=== PATIENT | female | born 1975 | race Caucasian/White ===

== ENCOUNTER 2017-03-18 08:34 | Emergency (ER) | payer MEDICARE, MEDICAID ==
[2017-03-18] MEDS ORDERED: Fentanyl 100 MCG/2 ML VIAL ONE (09:52)
[2017-03-18] MEDS ORDERED: Midazolam HCl 2 mg/2 ml Vial ONE (09:52)
[2017-03-18] MEDS ORDERED: Lorazepam 2 MG/ML VIAL ONE (10:14)
[2017-03-18 10:24] LABS: #Basophils 0.1 thou/uL (0.0-0.2); #Eosinphils 0.1 thou/uL (0.0-0.7); #Lymphocytes 0.6 thou/uL (1.20-3.40); #Monocytes 0.3 thou/uL (0.11-0.59); #Neutrophils 3.9 thou/uL (1.40-6.50); %Basophils 1.1 % (0.0-1.0); %Eosinophils 2.8 % (0.0-10.0); %Lymphocytes 12.6 % (21.0-51.0); %Monocytes 6.5 % (0.0-10.0); Hemoglobin 13.1 g/dL (12.0-16.0); Mean Corpuscular HGB CONC 33.2 g/dL (32.0-36.0); Mean Corpuscular Hemoglobin 32.8 pg (27.0-31.0); Mean Corpuscular Volume 98.6 fl (81.0-99.0); Mean Platelet Volume 6.6 fL (7.4-10.4); Platelet Count 287 thou/uL (130-400); RBC Distribution Width 10.8 % (11.5-14.5); Red Blood Cell (RBC) Count 3.99 mill/uL (4.20-5.40)
[2017-03-18 10:33] LABS: Prothrombin Time 12.9 SEC (12.0-14.7)
[2017-03-18 10:49] LABS: ALT (SGPT) 12 U/L (8-55); AST (SGOT) 21 U/L (5-34); Albumin 4.2 g/dL (3.5-5.0); Alkaline Phosphatase 104 U/L (40-150); Anion Gap 14 mmol/L (10-20); BUN (Urea Nitrogen) 9 mg/dL (7.0-18.7); Bilirubin, Total 0.3 mg/dL (0.2-1.2); Calc. Creatinine Clearance 0 mL/min (70-130); Calcium 9.1 mg/dL (7.8-10.44); Carbon Dioxide 23 mmol/L (22-29); Chloride 106 mmol/L (98-107); Estimated GFR-MDRD Greater than 90; Globulin 3.5 g/dL (2.4-3.5); Glucose 86 mg/dL (70-105); Potassium 4.7 mmol/L (3.5-5.1); Protein, Total 7.7 g/dL (6.0-8.3); Sodium 138 mmol/L (136-145)
--- NOTE | 2017-03-18 10:50 | CT ---
CT BRAIN WITHOUT CONTRAST: HISTORY: Fall while getting dressed this morning with head trauma. History of partial seizures and cerebral p alsy. COMPARISON: None. TECHNIQUE: Multiple contiguous axial images were obtained in a CT of the brain without contrast. FINDINGS: The brain is normal in morphology and attenuation without focal lesions or confluent areas of infarct ion. There is no evidence of hydrocephalus, intracranial hemorrhage, or extraaxial fluid collection. The calvarium and overlying soft tissues are unremarkable. The visualized paranasal sinuses and mast oid air cells are well aerated. IMPRESSION: No evidence of acute intracranial abnormality. POS: [facility]
--- NOTE | 2017-03-18 10:52 | CT ---
CT CERVICAL SPINE WITHOUT CONTRAST: HISTORY: Fall with head trauma and neck pain. COMPARISON: None. TECHNIQUE: Multiple contiguous axial images were obtained in a CT of the cervical spine without contrast. Sagit reyna and coronal reformats were performed. FINDINGS: There are mild to moderate degenerative changes of the cervical spine. The vertebral bodies demonstr ate normal height and alignment without fracture or subluxation. No prevertebral soft tissue swellin g is seen. The posterior facets are well aligned. Normal alignment of the skull base with the cervical spine is seen. IMPRESSION: Degenerative changes of the cervical spine without acute osseous abnormality. POS: [facility]
--- NOTE | 2017-03-18 10:55 | CT ---
CT FACE WITHOUT CONTRAST: HISTORY: Fall while getting dressed this morning. The patient hit her chin on a window sill with pain and swe lling. COMPARISON: None. TECHNIQUE: Multiple contiguous axial images were obtained in a CT of the face without contrast. Sagittal and co jim reformats were performed. 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 No fractu res of the mandible are seen, and this is likely chronic. There is a soft tissue laceration of the r ight anterior chin. No facial fractures are seen. The paranasal sinuses are well aerated. The mast oid air cells are well aerated. There is a small amount of material in both external auditory canals , which likely represent cerumen impaction. The globes and retrobulbar soft tissues are unremarkable. IMPRESSION: 1. No evidence of acute facial fracture. 2. 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 POS: [facility]
[2017-03-18] MEDS ORDERED: Diprivan 20 ML ONE (13:20)
[2017-03-18] MEDS ORDERED: Clindamycin/D5W 600 mg/50 ml Premix Bag ONE (13:20)
[2017-03-18] MEDS ORDERED: Lidocaine 1% w/Epinephrine 1:100K 20 ML VIAL ONE (13:42)
[2017-03-18] MEDS ORDERED: Ondansetron HCl/PF 4 MG/2 ML Vial ONE (14:34)
== END 2017-03-18 15:48 | disposition home or self-care (01) ==
LOC: ERS 08:34
DX: S01.81XA Laceration without foreign body of other part of head, initial encounter (principal); G40.209 Localization-related (focal) (partial) symptomatic epilepsy and epileptic syndromes with complex partial seizures, not intractable, without status epilepticus; W18.30XA Fall on same level, unspecified, initial encounter
CPT/HCPCS: 12052; 70450; 70486; 72125; 80053; 85025; 85610; 94760; 99152; 99153; J2001; J2060; J2250; J2405; J2704; J3010; J3490

== ENCOUNTER 2017-03-25 08:19 | Emergency (ER) | payer MEDICARE, MEDICAID ==
[2017-03-25] MEDS ORDERED: Midazolam HCl 5 mg/ml Vial ONE (08:42)
[2017-03-25] MEDS ORDERED: cefTRIAXone\\ROCEPHIN 500 MG VIAL ONE (09:06)
[2017-03-25] MEDS ORDERED: Lidocaine 1% PF 5 ML VIAL ONE (09:06)
== END 2017-03-25 10:10 | disposition home or self-care (01) ==
LOC: ERS 08:19
DX: T81.4XXA Infection following a procedure, initial encounter (principal); L03.211 Cellulitis of face
CPT/HCPCS: J0696; J2001; J2250

== ENCOUNTER 2019-02-13 15:49 | Emergency (ER) | payer MEDICARE, MEDICAID ==
--- NOTE | 2019-02-13 16:34 | CT ---
CT BRAIN WITHOUT CONTRAST: HISTORY: Altered mental status Comparison: 03/18/2017 FINDINGS: No evidence of acute infarct, hemorrhage, midline shift or abnormal extra-axial fluid collections is seen. The ventricular size is appropriate and the basilar cisterns are patent. The bony calvarium is intact. The visualized paranasal sinuses and mastoid air cells are well aerated. IMPRESSION: No CT evidence of acute intracranial process.
[2019-02-13 17:08] LABS: #Eosinphils 0.2 thou/uL (0.0-0.7); #Lymphocytes 0.8 thou/uL (1.20-3.40); #Monocytes 0.6 thou/uL (0.11-0.59); #Neutrophils 3.6 thou/uL (1.40-6.50); %Basophils 0.9 % (0.0-1.0); %Eosinophils 4.5 % (0.0-10.0); %Lymphocytes 15.9 % (21.0-51.0); %Monocytes 10.9 % (0.0-10.0); %Neutrophils 67.8 % (42.0-75.0); Hemoglobin 12.3 g/dL (12.0-16.0); Mean Corpuscular HGB CONC 33.5 g/dL (32.0-36.0); Mean Corpuscular Hemoglobin 32.6 pg (27.0-31.0); Mean Corpuscular Volume 97.3 fL (78.0-98.0); Mean Platelet Volume 6.7 fL (7.4-10.4); Platelet Count 270 thou/uL (130-400); Red Blood Cell (RBC) Count 3.76 mill/uL (4.20-5.40); White Blood Cell (WBC) Count 5.3 thou/uL (4.8-10.8)
[2019-02-13] MEDS ORDERED: carBAMazepine 200 MG TAB PO SCH (17:30)
[2019-02-13 17:32] LABS: ALT (SGPT) 9 U/L (8-55); AST (SGOT) 11 U/L (5-34); Albumin 4.1 g/dL (3.5-5.0); Alkaline Phosphatase 84 U/L (40-110); Anion Gap 7 mmol/L (10-20); BUN (Urea Nitrogen) 15 mg/dL (7.0-18.7); Bilirubin, Total Less than 0.2 mg/dL (0.2-1.2); Calc. Creatinine Clearance 0 mL/min (70-130); Calcium 9.2 mg/dL (7.8-10.44); Carbon Dioxide 33 mmol/L (22-29); Chloride 102 mmol/L (98-107); Estimated GFR-MDRD Greater than 90; Globulin 2.9 g/dL (2.4-3.5); Glucose 94 mg/dL (70-105); Potassium 4.3 mmol/L (3.5-5.1); Sodium 138 mmol/L (136-145)
== END 2019-02-13 19:40 | disposition home or self-care (01) ==
LOC: ERS 15:49
DX: G40.909 Epilepsy, unspecified, not intractable, without status epilepticus (principal); G80.9 Cerebral palsy, unspecified
CPT/HCPCS: 36415; 70450; 80053; 80156; 80177; 80185; 85025

== ENCOUNTER 2022-10-10 09:19 | Emergency (ER) | payer MEDICARE, MEDICAID ==
[2022-10-10] MEDS ORDERED: Midazolam HCl 2 mg/2 ml Vial ONE (10:39)
[2022-10-10] MEDS ORDERED: Boostrix 0.5 ML (Tdap) VIAL (>/=7 yrs of age) ONE (10:39)
== END 2022-10-10 12:03 | disposition home or self-care (01) ==
LOC: ERS 09:19
DX: S09.90XA Unspecified injury of head, initial encounter (principal); R04.0 Epistaxis; V00.811A Fall from moving wheelchair (powered), initial encounter
CPT/HCPCS: 70450; 70486; 71045; 72125; 72170; 90471; 90715; 96372; J2250